=== PATIENT | male | born 1990 | race Caucasian/White ===

== ENCOUNTER 2019-02-10 08:32 | Emergency (ER) | payer SELFPAY ==
[~2019-02-10] VITALS: Ht 182.9 cm; Wt 83.9 kg
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
[2019-02-10] MEDS ORDERED: BACI/NEOM/POLY B OINT PKT 1 UDPKT PACKET ONE (08:42)
[2019-02-10] MEDS ORDERED: BACI/NEOM/POLY B OINT PKT 1 UDPKT PACKET TP ONE (09:00)
--- NOTE | 2019-02-10 09:06 | NUR ---
PICKLING [employer]UM OPERATOR AT BEDSIDE FOR XRAY. PD AT BEDSIDE FOR INTERVIEW.
[2019-02-10] MEDS ORDERED: IBUPROFEN 600 MG TABLET PO ONE ×2 (10:00)
--- NOTE | 2019-02-10 10:00 | NUR ---
Patient is resting comfortably in bed with eyes closed. Easily aroused. VSS
--- NOTE | 2019-02-10 10:46 | NUR ---
PATIENT WAITING FOR HIS BROTHER TO PICK HIM UP.
[2019-02-10 11:28] VITALS: BP 144/66
--- NOTE | 2019-02-10 11:28 | NUR ---
Patient discharged to home in stable condition. Written and verbal after care instructions given. Patient verbalizes understanding of instruction.
== END 2019-02-10 11:28 | disposition home or self-care (01) ==
LOC: ER 08:48
DX: S93.492A Sprain of other ligament of left ankle, initial encounter (principal); S80.812A Abrasion, left lower leg, initial encounter; S80.811A Abrasion, right lower leg, initial encounter; V29.49XA Motorcycle driver injured in collision with other motor vehicles in traffic accident, initial encounter; Y93.55 Activity, bike riding; Y92.89 Other specified places as the place of occurrence of the external cause; Y99.8 Other external cause status
CPT/HCPCS: 29515; 73590; 73630 ×2; 99283; A6403